=== PATIENT | female | born 2000 | race Caucasian/White ===

== ENCOUNTER → 2020-09-12 08:40 | Outpatient (CLI) | payer OTHER, MEDICAID, SELFPAY ==
[2020-09-12 10:02] LABS: Appearance Urine UA CLEAR; Bilirubin Urine UA NEGATIVE (NEGATIVE); Color Urine UA YELLOW; Glucose Urine UA TRACE g/dL (Negative); Ketones Urine UA NEGATIVE (NEGATIVE); Leukocyte Esterase Urine UA NEGATIVE (NEGATIVE); Nitrite Urine UA NEGATIVE (Negative); Occult Blood Urine UA NEGATIVE (Negative); Protein Urine UA NEGATIVE (Negative); Specific Gravity Urine UA 1.025 (1.000-1.035); Urobilinogen Urine UA 0.2 E.U./dL (0.2)
[2020-09-12 10:07] LABS: Add Manual Diff / Slide Review NO; Basophils Absolute Auto 100 /uL (0-100); Basophils Percent Auto 0.8 % (0-2); Eosinophils Absolute Auto 0 /uL (0-450); Eosinophils Percent Auto 0.5 % (2-4); Hematocrit 36.9 % (36-46); Hemoglobin 12.5 g/dL (12.0-16.0); Lymphocytes Absolute Auto 1400 /uL (1100-4500); Lymphocytes Percent Auto 18.3 % (25-40); Mean Corpuscular HGB Conc 33.8 % (30-36); Mean Corpuscular Hemoglobin 29.9 PG (26-34); Mean Corpuscular Volume 88.6 fL (80-100); Monocytes Absolute Auto 600 /uL (0-900); Monocytes Percent Auto 7.2 % (3-14); Neutrophils Absolute Auto 5800 /uL (1500-7000); Neutrophils Percent Auto 73.2 % (50-75); Platelet Count 323 X10^3/uL (150-400); Red Blood Cell Count 4.17 X10^6/uL (4.0-5.2); Red Cell Distribution Width 14.5 % (11.6-14.8); White Blood Cell Count 7.9 X10^3/uL (4.5-11.0)
[2020-09-13 03:50] LABS: Varicella IgG Antibody <135 index (Immune >165)
[2020-09-13 06:02] LABS: RPR Screen Non Reactive (Non Reactive)
[2020-09-13 16:39] LABS: HIV 1 & 2 Ab/Ag 4th Gen Combo NEGATIVE (NEGATIVE); Hep C Virus Ab w/Reflex Quant NEGATIVE s/c (NEGATIVE); Hepatitis B Surface Antigen NEGATIVE s/c (NEGATIVE); Rubella Antibody IgG 13.8 IU/mL (>15)
== END ==
PROVIDERS: Referring Provider Obstetrics & Gynecology; Visit Provider Obstetrics & Gynecology
DX: Z34.01 Encounter for supervision of normal first pregnancy, first trimester (principal)
CPT/HCPCS: 36415; 80055; 81003; 86787; 86803; 86850; 86900; 86901; 87086; 87389

== ENCOUNTER → 2020-12-04 10:35 | Outpatient (CLI) | payer OTHER, MEDICAID, SELFPAY ==
--- NOTE | 2020-12-04 10:36 | DI.US.S_ITS ---
PROCEDURE: US OB >= 14 WEEKS FETUS INDICATIONS: anatomy OUTSIDE/PRIOR DATING DATA: Last menstrual period (LMP): 07/14/20. LMP-based estimated date of delivery (SRIRAM): 04/20/21 . First dating scan (date and location): 09/12/20 . Estimated date of delivery (SRIRAM) from first dating scan: 04/22/21 . TECHNIQUE: Real-time scanning was performed of the fetus, with image documentation and biometric measurements. Endovaginal scanning: Not needed COMPARISON: [facility], , OB >= 14 WEEKS FETUS, 11/06/2020, 15:24. [facility], , US OB >= 14 WEEKS FETUS, 10/10/2020, 8:36. FINDINGS: General: A single living intrauterine gestation is present. Presentation: Breech. Placenta: Placental position is anterior , without previa. Amniotic fluid index: 14.2 cm, normal range is 5-24 cm. heart rate: 150 beats per minute. Maternal cervical canal: 4.3 cm long. Normal lower limit is 2.5 cm. biometrics: Biparietal diameter: 1.5 14.8 cm, 20 weeks 3 days cm, Head circumference: 17.4 cm, 19 weeks 6 days Abdominal circumference: 14.3 cm, 19 weeks 4 days Femur length: 3.2 cm, 20 weeks 0 days Estimated gestational age from initial scan: 20 weeks 1 day Composite gestational age from present scan: 20 weeks 0 days Estimated weight and percentile: 315 g, 28th percentile Measurement variability for biometric dating: +/- 7 days from 14 weeks to 15 weeks 6 days gestation, +/- 10 days from 16 weeks to 21 weeks 6 days gestation, +/- 2 weeks from 22 weeks to 27 weeks 6 days gestation, +/- 3 weeks for 28 weeks gestation or later. weight reference: 4500 g or EFW >90/95% is considered macrosomia or large for gestational age. EFW <10% is small for gestational age. EFW 5% or less is considered intra-uterine growth restriction. Anatomic survey: Neuro: Ventricles are non-dilated at less than 10 mm. Cisterna magna is normal at 3-11 mm. Cerebellum is normal in size and morphology. Nuchal skin fold: Normal at less than 6 mm between 14-21 weeks gestational age. Face: Nose and lips, facial profile are normal. Spine: No evidence for spina bifida. Heart: 4-chambered heart is present, with normal ventricular outflow tracts. Diaphragm: Diaphragm is intact. Stomach: Left-sided stomach is present. Kidneys: No hydronephrosis. Normal is less than 5 mm in 2nd trimester, less than 7 mm in 3rd trimester. Cord: 3-vessel cord has orthotopic insertion. Bladder: Normal in size. Extremities: All 4 extremities identified. IMPRESSION: Appropriate interval growth, no anomaly seen. The delivery date is projected to be centered on 04/22/21. Dictated by: Mitchel Ritter M.D. on 12/04/2020 at 16:22 Approved by: Mitchel Ritter M.D. on 12/04/2020 at 16:25
== END ==
PROVIDERS: Referring Provider Obstetrics & Gynecology; Visit Provider Obstetrics & Gynecology
DX: Z34.02 Encounter for supervision of normal first pregnancy, second trimester (principal); Z3A.20 20 weeks gestation of pregnancy
CPT/HCPCS: 76811

== ENCOUNTER → 2021-01-18 14:02 | Outpatient (CLI) | payer OTHER, MEDICAID, SELFPAY ==
[2021-01-18 16:26] LABS: Hematocrit 28.3 % (36-46); Hemoglobin 9.2 g/dL (12.0-16.0)
[2021-01-18 16:57] LABS: GTT (PREG) 1 Hour PP 50gm Dose 109 mg/dL (76-139)
== END ==
PROVIDERS: Referring Provider Obstetrics & Gynecology; Visit Provider Obstetrics & Gynecology
DX: Z34.02 Encounter for supervision of normal first pregnancy, second trimester (principal); Z3A.25 25 weeks gestation of pregnancy
CPT/HCPCS: 36415; 82950; 85014; 85018

== ENCOUNTER → 2021-03-21 17:35 | Outpatient (CLI) | payer OTHER, MEDICAID, SELFPAY ==
[2021-03-22 17:04] LABS: Strep Grp B PCR NEG for Grp B Strep
== END ==
PROVIDERS: Visit Provider Obstetrics & Gynecology
DX: Z34.03 Encounter for supervision of normal first pregnancy, third trimester (principal); Z3A.35 35 weeks gestation of pregnancy
CPT/HCPCS: 87653

== ENCOUNTER 2021-04-15 06:48 | Inpatient (IN) | payer OTHER, MEDICAID, SELFPAY ==
[2021-04-15] MEDS: LACTATED RINGERS 1,000 ML 100 ML IV ×2 (08:22→14:04)
[2021-04-15] MEDS: OXYTOCIN PREMIX 30 UNIT/500 ML PLAST..BAG IV (08:24)
[2021-04-15 08:32] LABS: Add Manual Diff / Slide Review NO; Basophils Absolute Auto 100 /uL (0-100); Eosinophils Absolute Auto 100 /uL (0-450); Eosinophils Percent Auto 0.6 % (2-4); Hematocrit 26.9 % (36-46); Hemoglobin 8.6 g/dL (12.0-16.0); Lymphocytes Absolute Auto 1800 /uL (1100-4500); Lymphocytes Percent Auto 17.3 % (25-40); Mean Corpuscular Hemoglobin 24.6 PG (26-34); Mean Corpuscular Volume 77.1 fL (80-100); Monocytes Absolute Auto 800 /uL (0-900); Monocytes Percent Auto 7.3 % (3-14); Neutrophils Absolute Auto 7900 /uL (1500-7000); Neutrophils Percent Auto 73.8 % (50-75); Platelet Count 463 X10^3/uL (150-400); Red Blood Cell Count 3.49 X10^6/uL (4.0-5.2); Red Cell Distribution Width 19.6 % (11.6-14.8); White Blood Cell Count 10.6 X10^3/uL (4.5-11.0)
[2021-04-15 08:37] VITALS: BP 111/66
[2021-04-15 09:15] LABS: COVID19 - ADMIT (NP swab/PCR) Negative (Negative)
--- NOTE | 2021-04-15 12:37 | PM.AN.REGBLK ---
Regional Block Pre-procedure Procedure: Continuous Lumbar Epidural for L&D Attending OB provider: Carla Shell PMH/ROS narrative: term induction, no complications. ASA Class: II Labs: Hct 26.9 % (36-46) L 04/15/21 08:15 Plt Count 463 X10^3/uL (150-400) H 04/15/21 08:15 Medications: Current Medications Generic Name Dose Route Start Last Admin Trade Name Freq PRN Reason Stop Dose Admin Calcium Carbonate 1,000 mg 04/15/21 07:17 Calcium Carbonate 500 Mg Tab PO Q2HR PRN Dyspepsia Carboprost Tromethamine 250 mcg 04/15/21 07:17 Carboprost 250 Mcg/Ml Ampul IM Q90M PRN Bleeding Fentanyl 50 mcg 04/15/21 07:17 Fentanyl 100 Mcg/2 Ml Inj IV Q1H PRN Pain, Moderate (4-6) Lactated Ringer's 1,000 mls @ 100 mls/hr 04/15/21 07:30 04/15/21 08:22 Lactated Ringers IV 100 mls/hr CONT ESTRELLA Administration Oxytocin/Lactated Ringer's 30 unit in 500 mls @ 200 mls/hr 04/15/21 07:17 Oxytocin Premix IV CONT PRN Bleeding Protocol Tranexamic Acid 1,000 mg/ 100 mls @ 200 mls/hr 04/15/21 07:17 Sodium Chloride IV NOW PRN Bleeding Oxytocin/Lactated Ringer's 30 unit in 500 mls @ 3 mls/hr 04/15/21 07:30 04/15/21 08:24 Oxytocin Premix IV 3 milliunit/min TITRATE ESTRELLA 3 mls/hr Administration Protocol 3 MILLIUNIT/MIN Methylergonovine Maleate 0.2 mg 04/15/21 07:17 Methylergonovine 0.2 Mg Tablet PO Q6HR PRN Heavy Bleeding Methylergonovine Maleate 0.2 mg 04/15/21 07:17 Methylergonovine 0.2 Mg/Ml Vial IM NOW PRN Bleeding Metoclopramide HCl 10 mg 04/15/21 07:17 Metoclopramide 10 Mg/2 Ml Inj IV NOW PRN Nausea And Vomiting Misoprostol 800 mcg 04/15/21 07:17 Misoprostol 200 Mcg Tablet [place] NOW PRN Bleeding Misoprostol 1,000 mcg 04/15/21 07:17 Misoprostol 200 Mcg Tablet [place] NOW PRN Bleeding Misoprostol 400 mcg 04/15/21 07:17 Misoprostol 200 Mcg Tablet SL NOW PRN Bleeding Naloxone HCl 0.2 mg 04/15/21 07:17 Naloxone 0.4 Mg/Ml Vial IV Q2MIN PRN Opiate Reversal Ondansetron HCl 4 mg 04/15/21 07:17 Ondansetron 4 Mg/2 Ml Inj IV Q4HR PRN Nausea And Vomiting Oxytocin 10 unit 04/15/21 07:17 Oxytocin 10 Unit/Ml Vial IM NOW PRN Bleeding Allergies: Allergies Allergy/AdvReac Type Severity Reaction Status Date / Time latex Allergy Intermediate Swelling Verified 04/15/21 08:43 of Lip/Tongue/Throat Procedure Insertion date: 04/15/21 Insertion time: 12:50 Prep/Local: betadine x3 and 1% lidocaine Interspace: L3-4 Patient position: sitting Needle: 18 gauge [employer] (CSE: 27g Pencan through Hust[employer], clear CSF, 1mL 0.25% bupiv) KURT at (cm): 5 Catheter placed at SKIN (cm): 10 Catheter in SPACE (cm): 5 Initial Medications TEST DOSE time: 12:53 TEST DOSE: 1.5% lidocaine with epinephrine 1:200k (mL): 3 BOLUS DOSE time: 13:05 BOLUS DOSE (mL): 3 BOLUS DOSE med: other (infusate) Infusion INFUSION: 0.125% bupivacaine and with fentanyl 2 mcg/mL Initial rate (mL/hr): 6 Subsequent interventions: 16:10 6mL 2% chloroprocaine + 50mcg fentanyl 17:20 5mL 2% lidocaine + 50mcg fentanyl 17:36 6mL 2% chloroprocaine Brief periods of some relief after boluses. Catheter noted to be at 8cm at skin. Unable to get coverage for pubic/perineum, legs weak. Pt, surgeon, and myself discussed replacing catheter for improved coverage, pt at 9+cm, posterior lip, likely OP presentation. Catheter pulled, prepped and draped, attempted replacement one level down. Anatomy felt distorted/edemotous. Landmarks obscured. Obtained KURT, but CSE with 27g Pencan => +blood. Attempted replacement at original level, same problem. Unable to replace. Pt appeared comfortable throughout. No paresthesias. After multiple passes, decision was made to abort procedure, as risk appeared to be surpassing benefit at that point. Vacuum assist vaginal delivery. Mother, baby well. Post-procedure Anesthesia time START: 12:42 Anesthesia time END: 18:32 Post-procedure Anesthesia Assessment: Yes CV function: HR/BP stable, Yes Resp function: RR/sat/airway adequate, Yes Mental status appropriate and No Anesthesia complications
--- NOTE | 2021-04-15 18:27 | PM.OBHP.1 ---
OB HPI Date/Time Date of admission: 04/15/21 Date Patient Seen: 04/15/21 Time Patient Seen: 07:18 History of Present Condition Chief complaint: LABOR : 1 Para: 0 Estimated Date of Delivery: 04/20/21 Estimated Gestational Age (weeks): 39+2 Narrative: Veda Dooley is a 20 year old female 1 para 0 at 39-,2/7 weeks gestation who presented for induction of labor with a favorable cervix. History of Present care: good care, initiated at week # (8), number of visits (11) and pounds weight gain (51) Dating criteria: LMP confirmed by 1st trimester US Ultrasounds: normal 1st trimester US and normal mid trimester US Obstetrical complications: none Preadmission Labs Blood type: A (+) positive -: Antibody screen: negative, GBS status: negative, HBsAG: negative, HIV: negative and RPR/VDLR: negative -: Chlamydia screen: not detected and Gonorrhea screen: not detected -: Rubella: not immune and Varicella: not immune HCT: 26.9 HCAB: negative PAP: Normal Urine: Negative 1 hr GTT: 109 Evaluation Evaluation Baseline heart rate: 135 Variability: Moderate (11-25) monitor accelerations: Present Monitor Decelerations: Absent Contraction Frequency (minutes): 0 Status: Category l Cervical dilation (cm): 1 Cervical effacement (%): 90 station: -1 [facility] Medical History (Updated 04/12/21 @ 09:31 by Pedro Luis Jarrett MD) Nasal fracture (~02/2020) No known health problems Surgical History (Updated 09/04/20 @ 14:32 by Jocelyn Du RN) No history of previous surgery Family History (Updated 09/04/20 @ 14:30 by Jocelyn Du RN) Mother Bipolar 1 disorder Addiction Alcoholism and drug addiction in family Asthma Father Addiction Hypertension Alcoholism and drug addiction in family Grandmother Old age Grandfather No problems noted. Grandmother Asthma Grandfather Altered cardiac tissue perfusion History of heart attack H/O heart bypass surgery Sister No problems noted. Brother Asthma Social History marital status: unmarried,living together household members: significant other and family (Live with FOB Grandfather and his Brother) lives independently: No pets and animals: Yes (X 1 cat and X 1 dog) education level: high school (Drop-out : Sophomore year ) occupational status: unemployed current occupational exposures/hazards: Yes ([employer]) special carter needs: No Smoking Status: Never smoker Tobacco: How many years used: 7 second hand exposure: No ([facility] smokes outside) alcohol intake: former (pre- : occasional ) substance use type: does not use Meds Home Medications and Allergies Home Medications Medication Instructions Recorded Confirmed Type prenat.vits,blanca,[id number]-[id number] 1 tab PO DAILY #90 tab 02/04/21 04/15/21 Rx Allergies Allergy/AdvReac Type Severity Reaction Status Date / Time latex Allergy Intermediate Swelling Verified 04/15/21 08:43 of Lip/Tongue/Throat Exam Narrative Exam Narrative: Generally: A well-developed, well-nourished female, no acute distress Lungs: Clear to auscultation bilaterally Cardiovascular: Regular rate and Fundal height: 39 cm Estimated weight: 7 lb Extremities: Trace edema, 1+ DTRs Objective Labs Result Diagrams: 04/15/21 08:15 Labs: Laboratory Results - last 24 hr 04/15/21 04/15/21 04/15/21 08:15 08:15 08:15 WBC 10.6 RBC 3.49 L Hgb 8.6 L Hct 26.9 L MCV 77.1 L MCH 24.6 L MCHC 32.0 RDW 19.6 H Plt Count 463 H Neut % (Auto) 73.8 Lymph % (Auto) 17.3 L [place] % (Auto) 7.3 Eos % (Auto) 0.6 L Baso % (Auto) 1.0 Neut # (Auto) 7900 H Lymph # (Auto) 1800 [place] # (Auto) 800 Eos # (Auto) 100 Baso # (Auto) 100 SARS-CoV-2 (PCR) Negative Blood Type A Positive Antibody Screen Negative Assessment and Plan Assessment and Plan Assessment and Plan narrative: Assessment: 20-year-old 1 para 0 at 39-,2/7 weeks gestation for induction of labor GBS negative Plan: Pitocin per protocol 2 AROM when able Epidural as necessary Expected management to spontaneous vaginal delivery Time Spent with Patient Total time spent with greater than 50% in coordination of care (as documented) at patient's floor/unit and/or counseling patient:: 15-24 minutes
--- NOTE | 2021-04-15 21:14 | PM.OBPNLAB ---
Date/Time Date Patient Seen: 04/15/21 Time Patient Seen: 12:10 Pelvic Exam Effacement (%): 90 station: -1 Status status: Category l
--- NOTE | 2021-04-15 21:14 | PM.OBPNLAB ---
Date/Time Date Patient Seen: 04/15/21 Time Patient Seen: 05:30 Pelvic Exam Effacement (%): 90 station: -1 Status status: Category l
--- NOTE | 2021-04-15 21:14 | PM.OBPRVD ---
Events: Labor Induction Labor & Delivery Delivery date: 04/15/21 Intrapartal Events: None and Anesthetic Complications (Epidural analgesia inadequate) Cervical ripening method: none Induction method: per pitocin protocol Delivery augmentation: rupture of membranes Delivery monitor: external FHT and external uterine Route of delivery: vacuum extraction Indication for instrumentation: other (Inadequate pain management) Episiotomy description: None L&D Laceration Description: Vaginal - 2nd Degree Delivery repair: vicryl and chromic Estimated blood loss (mL): 200 Anesthesia Type: Local Complications: Inadequate analgesia with epidural Narrative: Patient complete and pushed for 1-1/2 hours. Vacuum applied due to patient intolerance with the pain and vertex at +2 station at 8:23 p.m.. With 2 pulls over 1 contraction, the vertex delivered over an intact perineum. The vacuum was removed. No nuchal cord. The remainder of the body delivered without difficulty and was placed on mom's abdomen. After the cord stopped pulsing, the cord was double clamped and cut. Cord bloods were obtained. The placenta delivered intact with a three-vessel cord at 8:33 p.m.. Pitocin was given in the IV fluids after the cord was double clamped and cut. Fundus was massaged to firm. A second-degree perineal/vaginal laceration was repaired Vicryl and chromic in the usual fashion. Hemostasis was achieved. Estimated blood loss 200 cc. Apgars 7 at 1 minute and 9 at 5 minutes. weight 8 lb 7 oz. . Local anesthesia for the repair. Mom and infant stable to recovery. Baby 1: gender: Female Presentation: vertex Position: Left Occiput Anterior Placenta delivery description: Spontaneous Cord Vessel Description: 3 Vessels score (1 min): 7 score (5 min): 9 weight: 8 lb 7 oz Plan for aftercare: Routine care
[2021-04-15] MEDS: OXYCODONE IR 5 MG TABLET PO (21:46)
[2021-04-15] MEDS: ACETAMINOPHEN 325 MG TABLET 650 MG PO (21:46)
[2021-04-15] MEDS: IBUPROFEN 600 MG TABLET PO (21:46)
[2021-04-16] MEDS: OXYCODONE IR 5 MG TABLET PO ×4 (02:09→18:44)
[2021-04-16] MEDS: LANOLIN OINT 7 GM 1 APPLIC TOP (02:14)
[2021-04-16] MEDS: DERMOPLAST SPRAY 20% 60 ML 1 SPRAY TOP (02:14)
[2021-04-16] MEDS: ACETAMINOPHEN 325 MG TABLET 650 MG PO ×3 (04:05→18:43)
[2021-04-16] MEDS: IBUPROFEN 600 MG TABLET PO ×3 (04:05→18:44)
[2021-04-16] MEDS: DOCUSATE 100 MG CAPSULE PO (08:26)
[2021-04-16] MEDS: PRENATAL VIT,CALC/IRON/FOLIC 1 TABLET 1 TAB PO (08:26)
[2021-04-16 08:29] VITALS: TEMP 36.9
[2021-04-16 08:53] LABS: Hematocrit 25.9 % (36-46); Hemoglobin 8.3 g/dL (12.0-16.0)
[2021-04-16 11:06] VITALS: TEMP 36.9
[2021-04-16 11:07] VITALS: TEMP 36.9
[2021-04-16 14:19] VITALS: TEMP 36.8
--- NOTE | 2021-04-16 18:46 | PM.OBPN.1 ---
Subjective - OB Subjective Patient comments: other (Perineal pain) baby status: doing well and nursing well feeding status: exclusively breast feeding Date Patient Seen: 04/16/21 Time Patient Seen: 18:46 Exam Vital Signs (past 8 hours): - 04/16/21 11:06 04/16/21 11:07 04/16/21 14:19 Temperature 98.5 F 98.5 F 98.3 F Narrative Exam Narrative: Generally: Patient lying on left side, no acute distress Fundus: Firm at U -1 Extremities: Negative Homans, 1+ edema Objective Labs Result Diagrams: 04/16/21 08:41 Labs: Laboratory Results - last 24 hr 04/16/21 08:41 Hgb 8.3 L Hct 25.9 L Assessment & Plan Plan day: 1 plan OB: routine care Comments: Would like patient to stay until tomorrow to get more help with Time Spent With Patient Time: Total time spent is greater than 50% in coordination of care (as documented) at patient's floor/unit and/or counseling patient: Time with patient: less than 15 minutes
[2021-04-17] MEDS: IBUPROFEN 600 MG TABLET PO ×2 (03:41→09:05)
[2021-04-17] MEDS: OXYCODONE IR 5 MG TABLET PO (03:41)
[2021-04-17 08:19] VITALS: BP 114/59; PULSE 71; RESP 16; TEMP 36.7
[2021-04-17] MEDS: PRENATAL VIT,CALC/IRON/FOLIC 1 TABLET 1 TAB PO (09:04)
[2021-04-17] MEDS: DOCUSATE 100 MG CAPSULE PO (09:04)
[2021-04-17] MEDS: MEASLES,MUMPS,RUBELLA VACC/PF 0.5 ML VIAL SUBCUT (10:07)
--- NOTE | 2021-04-19 04:15 | PM.OBDS.1 ---
Discharge Providers Provider Date of admission: 04/15/21 06:48 Discharge Date: 04/17/21 Consults: 04/16/21 21:18 Consult to Licensed Physical Therapist Routine Comment: Discharge provider: Carla Shell MD Summary Hospital Course Date Patient Seen: 04/10/21 Time Patient Seen: 07:45 Diagnoses: 39-,2/7 weeks gestation Pitocin induction of labor Artificial rupture of membranes Epidural analgesia Vacuum assisted vaginal delivery Second-degree laceration and repair Hospital Course: Patient is a 20-year-old 1 para 1 who presented on April 15, 2021 for scheduled Pitocin induction of labor. She was started on Pitocin. Artificial rupture of membranes was performed. She received an epidural for pain management. Adequate pain management with the epidural was an issue. She had several boluses. An attempt to replace the epidural was unsuccessful. The patient went on to complete dilation and pushed for 1-1/2 hours. She had a vacuum assisted vaginal delivery without complication. She had a second-degree vaginal/perineal laceration which was repaired with local anesthetic. Her course was unremarkable. She was discharged home on day # 1-2. was going well. Bleeding was tapering. Her pain was well controlled. Peripartum Data Infant Delivery Method: Assisted Delivery (Vacuum assisted vaginal delivery) Laceration Description: Perineal - 2nd Degree and Vaginal - 2nd Degree Episiotomy description: None Procedures: Pitocin induction of labor Epidural Artificial rupture of membranes Vacuum assisted vaginal delivery Second-degree perineal/vaginal laceration repair complications: none 1: Gender: Female Disposition of : home Status at Discharge Cognitive/behavioral status at discharge: oriented Functional status at discharge: independent ambulation Overall status at discharge: patient is progressing back to baseline Time Spent with Patient Time attestation: Total time spent providing and/or coordinating discharge services: Time spent: Less than 30 minutes Objective Labs Result Diagrams: 04/16/21 08:41 Exam Narrative Exam Narrative: Generally: Patient is sitting up in chair, holding , no acute distress Fundus: Firm at U -1 Extremities: Trace edema, negative Homans Discharge Plan Discharge Plan Patient Disposition: Home Provider Discharge Comment: Call with fever, chills, or bleeding vaginally more than a pad in an hour Discharge orders & Medications Prescriptions: New ibuprofen 600 mg tablet 600 mg PO Q6H PRN (Reason: Cramping) Qty: 30 RF: 2 Continued prenat.vits,blanca,obi-hpbk-gfzib Tablet 1 tab PO DAILY Qty: 90 RF: 3 Follow up/Referrals: Carla Shell MD [Physician] - 6 Weeks (Appointment with on Thrus, May at 2:30 pm with for check,) Diet/Activity/Treatments Diet: Regular Activity: Nothing in the vagina for 6 weeks Skin/Wound/Dressing Care Report to your healthcare provider any signs of infection, such as:: chills, fever, increased pain, unusual drainage and unusual redness Other wound treatment: Use peribottle Visit Report/Discharge Packet Instructions: DI for Labor and Delivery, Vaginal
== END 2021-04-17 10:34 | disposition home or self-care (01) | DRG 560 ==
PROVIDERS: Admitting Provider Obstetrics & Gynecology; Referring Provider Obstetrics & Gynecology; Visit Provider Obstetrics & Gynecology
DX: O70.1 Second degree perineal laceration during delivery (principal); Z3A.39 39 weeks gestation of pregnancy; Z37.0 Single live birth; Z20.822 Contact with and (suspected) exposure to COVID-19
CPT/HCPCS: 01967; 36415; 59050; 59409; 85014; 85018; 85025; 86850; 86900; 86901; 87635; C9803; G0379; J2590; J3010